=== PATIENT | female | born 1950 | race Caucasian/White ===

== ENCOUNTER 2022-03-20 07:47 | Emergency (ER) | payer MEDICARE ==
[2022-03-20 07:55] VITALS: RESP 18
[2022-03-20 08:50] LABS: Basophils # (A) 0.1 k/uL (0-0.2); Basophils % (A) 1 %; Eosinophils # (A) 0.2 k/uL (0-0.7); Eosinophils % (A) 3 %; HCT 47.2 % (34.0-46.0); HGB 15.6 gm/dL (11.4-16.0); Lymphocytes # (A) 1.6 k/uL (1.0-4.8); Lymphocytes % (A) 24 %; MCH 30.1 pg (25.0-35.0); MCV 91.1 fL (80.0-100.0); Mean Platelet Volume 9.8; Monocytes # (A) 0.3 k/uL (0-1.0); Monocytes % (A) 4 %; Neutrophils # (A) 4.4 k/uL (1.3-7.7); Neutrophils % (A) 66 %; Platelet Count 219 k/uL (150-450); RBC 5.18 m/uL (3.80-5.40); RDW 12.7 % (11.5-15.5); WBC 6.7 k/uL (3.8-10.6)
--- NOTE | 2022-03-20 08:54 | CT ---
EXAMINATION TYPE: CT brain wo con CT DLP: 1055.4 mGycm, Automated exposure control for dose reduction was used. DATE OF EXAM: 03/20/2022 8:24 AM COMPARISON: None CLINICAL INDICATION:Female, 71 years old with history of Neuro deficit, acute, stroke suspected, Rt e ye visual changes, [place] TECHNIQUE: Brain: Multiple axial CT images of the brain were obtained without IV contrast. FINDINGS: Brain: Extra-axial spaces: No abnormal extra-axial fluid collections. Ventricular system: Within normal limits Cerebral parenchyma: No acute intraparenchymal hemorrhage or mass effect. The sparrow-white junction is well differentiated. Cerebellum: Unremarkable. Mass effect: No evidence of midline shift. Intracranial vasculature: Atherosclerotic calcifications of the intracranial vessels. Soft tissues: Normal. Calvarium/osseous structures: No depressed skull fracture. Paranasal sinuses and mastoid air cells: Mild scattered paranasal sinus disease. Visualized orbits: Orbital contents are intact. IMPRESSION: No acute intracranial process.
--- NOTE | 2022-03-20 08:54 | XR ---
EXAMINATION TYPE: XR chest 2V DATE OF EXAM: 03/20/2022 8:24 AM COMPARISON: None TECHNIQUE: XR chest 2V Frontal and lateral views of the chest. CLINICAL INDICATION:Female, 71 years old with history of altered mental status; FINDINGS: Lungs/Pleura: There is no evidence of pleural effusion, focal consolidation, or pneumothorax. Pulmonary vascularity: Unremarkable. Heart/mediastinum: Cardiomediastinal silhouette is unremarkable. Musculoskeletal: No acute osseous pathology. IMPRESSION: No acute cardiopulmonary disease/process.
[2022-03-20 08:58] LABS: INR 0.9 (<1.2); Partial Thromboplastin Time 25.6 sec (22.0-30.0); Prothrombin Time 10.3 sec (9.0-12.0)
[2022-03-20] MEDS ORDERED: hydrALAZINE HCL 20 MG/ML 1 ML VIAL IVP STA ×2 (09:02→09:41)
--- NOTE | 2022-03-20 09:02 | ED ---
General Adult HPI - General Chief complaint: Neuro Symptoms/Deficit Stated complaint: R eye swelling Time Seen by Provider: 03/20/22 08:00 Source: patient, RN notes reviewed, old records reviewed Mode of arrival: ambulatory Limitations: no limitations - History of Present Illness Initial comments: This is a 71-year-old female presents emergency Department complaining that last night about 10:00 she noticed she was having some blurred vision out of her right eye and she also noticed that she was having some pain around the right eye. Patient does not describe this headache she states it was more of an eye pain. Patient states today there is very little discomfort of the eye but her vision remains blurred. Patient did not notice that her pupil was dilated. Patient states she's been told that she has had high blood pressure in the past but has not done anything about it. Patient denies any chest pain palpitations difficulty breathing shortness of breath. Patient denies any other areas of numbness or weakness. Patient denies any slurred speech. - Related Data Previous Rx's Medication Instructions Recorded atenoloL [Tenormin] 12.5 mg PO BID #30 each 03/20/22 Allergies Allergy/AdvReac Type Severity Reaction Status Date / Time No Known Allergies Allergy Verified 03/20/22 09:45 Review of Systems ROS Statement: Those systems with pertinent positive or pertinent negative responses have been documented in the HPI. ROS Other: All systems not noted in ROS Statement are negative. Past Medical History Past Medical History: Cancer Additional Past Medical History / Comment(s): basal cell removed. History of Any Multi-Drug Resistant Organisms: None Reported Past Surgical History: No Surgical Hx Reported Past Psychological History: No Psychological Hx Reported Smoking Status: Never smoker Past Alcohol Use History: Occasional Past Drug Use History: None Reported General Exam - General Exam Comments Initial Comments: GENERAL: Patient is well-developed and well-nourished. Patient is nontoxic and well- hydrated and is in mild distress. ENT: Neck is soft and supple. No significant lymphadenopathy is noted. Oropharynx is clear. Moist mucous membranes. Neck has full range of motion without quinn citing any pain. EYES: The sclera were anicteric and conjunctiva were pink and moist. Extraocular movements were intact. Right pupil is dilated and not reactive Eyelids were unremarkable. PULMONARY: Unlabored respirations. Good breath sounds bilaterally. No audible rales rhonchi or wheezing was noted. CARDIOVASCULAR: There is a regular rate and rhythm without any murmurs gallops or rubs. ABDOMEN: Soft and nontender with normal bowel sounds. SKIN: Skin is clear with no lesions or rashes and otherwise unremarkable. NEUROLOGIC: Patient is alert and oriented x3. Cranial nerves II through XII are grossly intact. Motor and sensory are also intact. Normal speech, volume and content. Symmetrical smile. MUSCULOSKELETAL: Normal extremities with adequate strength and full range of motion. LYMPHATICS: No significant lymphadenopathy is noted PSYCHIATRIC: Normal psychiatric evaluation. Limitations: no limitations Course Vital Signs 03/20/22 03/20/22 03/20/22 07:48 09:08 09:34 Temperature 97.5 F L Pulse Rate 84 80 80 Respiratory 18 18 18 Rate Blood Pressure 222/108 194/102 190/99 O2 Sat by Pulse 97 98 98 Oximetry 03/20/22 09:53 Temperature 98.9 F Pulse Rate Respiratory Rate Blood Pressure O2 Sat by Pulse Oximetry Medical Decision Making - Medical Decision Making EKG shows sinus rhythm with occasional PVCs at 70 bpm ME interval is 159 QRSs 84 QT interval 396 QTC is 4:30. Patient's EKG shows no ST segment elevation or depression. Computed tomography scan shows no acute abnormality. I spoke with Dr. Vidal and he was not on-call nose Dr. Rubio so the patient will need to be transferred. Patient did receive high blood pressure medication in the emergency department and some timolol and alphagan eyedrops per Dr. Vidal. Dr. Adam came and saw the patient and prescribed a few more drops for the eye and will see the patient at 820 tomorrow. Patient's eye pressure came down to 3 2 from 72. - Lab Data Result diagrams: 03/20/22 08:31 03/20/22 09:15 Lab Results 03/20/22 03/20/22 03/20/22 Range/Units 08:31 08:31 09:15 WBC 6.7 (3.8-10.6) k/uL RBC 5.18 (3.80-5.40) m/uL Hgb 15.6 (11.4-16.0) gm/dL Hct 47.2 H (34.0-46.0) % MCV 91.1 (80.0-100.0) fL MCH 30.1 (25.0-35.0) pg MCHC 33.0 (31.0-37.0) g/dL RDW 12.7 (11.5-15.5) % Plt Count 219 (150-450) k/uL MPV 9.8 Neutrophils % 66 % Lymphocytes % 24 % Monocytes % 4 % Eosinophils % 3 % Basophils % 1 % Neutrophils # 4.4 (1.3-7.7) k/uL Lymphocytes # 1.6 (1.0-4.8) k/uL Monocytes # 0.3 (0-1.0) k/uL Eosinophils # 0.2 (0-0.7) k/uL Basophils # 0.1 (0-0.2) k/uL PT 10.3 (9.0-12.0) sec INR 0.9 (<1.2) APTT 25.6 (22.0-30.0) sec Sodium 140 (137-145) mmol/L Potassium 3.8 (3.5-5.1) mmol/L Chloride 107 (98-107) mmol/L Carbon Dioxide 24 (22-30) mmol/L Anion Gap 9 mmol/L BUN 6 L (7-17) mg/dL Creatinine 0.62 (0.52-1.04) mg/dL Est GFR (CKD-EPI)AfAm >90 (>60 ml/min/1.73 sqM) Est GFR (CKD-EPI)NonAf 90 (>60 ml/min/1.73 sqM) Glucose 114 H (74-99) mg/dL Calcium 9.0 (8.4-10.2) mg/dL Total Bilirubin 0.7 (0.2-1.3) mg/dL AST 23 (14-36) U/L ALT 16 (4-34) U/L Alkaline Phosphatase 92 (38-126) U/L Troponin I (0.000-0.034) ng/mL Total Protein 7.2 (6.3-8.2) g/dL Albumin 4.2 (3.5-5.0) g/dL 03/20/22 Range/Units 09:15 WBC (3.8-10.6) k/uL RBC (3.80-5.40) m/uL Hgb (11.4-16.0) gm/dL Hct (34.0-46.0) % MCV (80.0-100.0) fL MCH (25.0-35.0) pg MCHC (31.0-37.0) g/dL RDW (11.5-15.5) % Plt Count (150-450) k/uL MPV Neutrophils % % Lymphocytes % % Monocytes % % Eosinophils % % Basophils % % Neutrophils # (1.3-7.7) k/uL Lymphocytes # (1.0-4.8) k/uL Monocytes # (0-1.0) k/uL Eosinophils # (0-0.7) k/uL Basophils # (0-0.2) k/uL PT (9.0-12.0) sec INR (<1.2) APTT (22.0-30.0) sec Sodium (137-145) mmol/L Potassium (3.5-5.1) mmol/L Chloride (98-107) mmol/L Carbon Dioxide (22-30) mmol/L Anion Gap mmol/L BUN (7-17) mg/dL Creatinine (0.52-1.04) mg/dL Est GFR (CKD-EPI)AfAm (>60 ml/min/1.73 sqM) Est GFR (CKD-EPI)NonAf (>60 ml/min/1.73 sqM) Glucose (74-99) mg/dL Calcium (8.4-10.2) mg/dL Total Bilirubin (0.2-1.3) mg/dL AST (14-36) U/L ALT (4-34) U/L Alkaline Phosphatase (38-126) U/L Troponin I <0.012 (0.000-0.034) ng/mL Total Protein (6.3-8.2) g/dL Albumin (3.5-5.0) g/dL Critical Care Time Critical Care Time: Yes Total Critical Care Time: 35 Disposition Clinical Impression: Acute angle-closure glaucoma, High blood pressure Disposition: HOME SELF-CARE Condition: Good Instructions (If sedation given, give patient instructions): Glaucoma (ED) Additional Instructions: Take [address] Adam has prescribed 30 and take them as prescribed Prescriptions: atenoloL [Tenormin] 12.5 mg PO BID #30 each Is patient prescribed a controlled substance at d/c from ED?: No Referrals: None,Stated [Primary Care Provider] - 1-2 days Time of Disposition: 12:18
[2022-03-20 09:44] LABS: ALT 16 U/L (4-34); AST 23 U/L (14-36); African American GFR (CKD) >90 (>60 ml/min/1.73 sqM); Albumin 4.2 g/dL (3.5-5.0); Alkaline Phosphatase 92 U/L (38-126); Anion Gap 9 mmol/L; Blood Urea Nitrogen 6 mg/dL (7-17); Carbon Dioxide 24 mmol/L (22-30); Chloride 107 mmol/L (98-107); Glucose 114 mg/dL (74-99); Non-African American GFR(CKD) 90 (>60 ml/min/1.73 sqM); Potassium 3.8 mmol/L (3.5-5.1); Sodium 140 mmol/L (137-145); Total Bilirubin 0.7 mg/dL (0.2-1.3); Total Protein 7.2 g/dL (6.3-8.2)
[2022-03-20] MEDS ORDERED: TIMOLOL 0.25% OPHTH DROPS 5 ML BTL RIGHT EYE STA (10:01)
[2022-03-20] MEDS ORDERED: BRIMONIDINE TARTRATE 0.2% DROPS 5 ML BTL RIGHT EYE STA (10:04)
[2022-03-20] MEDS ORDERED: DORZOLAMIDE HCL 2% DROPS 10 ML BTL RIGHT EYE SCH (11:30)
[2022-03-20 12:28] VITALS: TEMP 97.5
[2022-03-20 12:51] VITALS: BP 147/89; PULSE 82
[2022-03-20] MEDS ORDERED: LATANOPROST 0.005% OPHTH DROPS 2.5 ML BTL RIGHT EYE SCH (21:00)
== END 2022-03-20 12:43 | disposition home or self-care (01) ==
LOC: EC 07:47
DX: H40.211 Acute angle-closure glaucoma, right eye (principal); I10 Essential (primary) hypertension
CPT/HCPCS: 96374; 96376; 99284; 36415; 93005; 80053; 84484; 85025; 85610; 70450; 85730; 71046; J0360

== ENCOUNTER 2022-04-09 07:27 | Emergency (ER) | payer MEDICARE ==
[2022-04-09 07:33] VITALS: BP 207/98; PULSE 71; RESP 16; TEMP 97.8
[2022-04-09] MEDS ORDERED: atenoloL 25 MG TAB PO STA (07:37)
--- NOTE | 2022-04-09 07:46 | ED ---
General Adult HPI - General Chief complaint: Recheck/Abnormal Lab/Rx Stated complaint: med refill Time Seen by Provider: 04/09/22 07:32 Source: patient, RN notes reviewed Mode of arrival: ambulatory Limitations: no limitations - History of Present Illness Initial comments: 70-year-old female presents emergency Department with chief complaint of knee medication refill. Patient states she's recently diagnosed hypertension states that she needs her atenolol. She denies any current symptoms. Denies chest pain shortness breath or dizziness. 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 Patient offers no complaints. - Related Data Previous Rx's Medication Instructions Recorded atenoloL [Tenormin] 12.5 mg PO BID #30 each 03/20/22 atenoloL 12.5 mg PO BID #30 tablet 04/09/22 Allergies Allergy/AdvReac Type Severity Reaction Status Date / Time No Known Allergies Allergy Verified 04/09/22 07:33 Review of Systems ROS Statement: Those systems with pertinent positive or pertinent negative responses have been documented in the HPI. ROS Other: All systems not noted in ROS Statement are negative. Past Medical History Past Medical History: Cancer, Hypertension Additional Past Medical History / Comment(s): basal cell removed. History of Any Multi-Drug Resistant Organisms: None Reported Past Surgical History: No Surgical Hx Reported Past Psychological History: No Psychological Hx Reported Smoking Status: Former smoker Past Alcohol Use History: Occasional Past Drug Use History: None Reported General Exam Limitations: no limitations General appearance: alert, in no apparent distress Head exam: Present: atraumatic, normocephalic, normal inspection Neck exam: Present: normal inspection. Absent: tenderness, meningismus, lymphadenopathy Respiratory exam: Present: normal lung sounds bilaterally. Absent: respiratory distress, wheezes, rales, rhonchi, stridor Cardiovascular Exam: Present: regular rate, normal rhythm, normal heart sounds. Absent: systolic murmur, diastolic murmur, rubs, gallop, clicks GI/Abdominal exam: Present: soft, normal bowel sounds. Absent: distended, tenderness, guarding, rebound, rigid Course Vital Signs 04/09/22 07:30 Temperature 97.8 F Pulse Rate 71 Respiratory 16 Rate Blood Pressure 207/98 O2 Sat by Pulse 95 Oximetry Medical Decision Making - Medical Decision Making Patient is asymptomatic does have noted hypertension given atenolol currently, patient was given medication refill. Disposition Clinical Impression: Hypertension, Encounter for medication refill Disposition: HOME SELF-CARE Condition: Stable Instructions (If sedation given, give patient instructions): Hypertension (ED) Additional Instructions: Please return to the Emergency Department if symptoms worsen or any other concerns. Prescriptions: atenoloL 12.5 mg PO BID #30 tablet Is patient prescribed a controlled substance at d/c from ED?: No Referrals: None,Stated [Primary Care Provider] - 1-2 days Jose Garrido MD [STAFF PHYSICIAN] - 1-2 days Time of Disposition: 07:46
== END 2022-04-09 07:58 | disposition home or self-care (01) ==
LOC: EC 07:27
DX: I10 Essential (primary) hypertension (principal); Z76.0 Encounter for issue of repeat prescription; Z87.891 Personal history of nicotine dependence
CPT/HCPCS: 99281

== ENCOUNTER 2022-04-09 18:01 | Emergency (ER) | payer MEDICARE ==
[2022-04-09 18:25] VITALS: RESP 16; TEMP 97.9
[2022-04-09] MEDS ORDERED: TIMOLOL 0.5% OPHTH DROPS 5 ML BTL RIGHT EYE STA ×3 (19:10→21:01)
[2022-04-09] MEDS ORDERED: BRIMONIDINE TARTRATE 0.2% DROPS 5 ML BTL RIGHT EYE STA ×3 (19:11→20:59)
[2022-04-09] MEDS ORDERED: PILOCARPINE 2% OPHTH DROPS 15 ML BTL RIGHT EYE STA (19:12)
[2022-04-09] MEDS ORDERED: acetaZOLAMIDE 250 MG TAB PO STA ×3 (19:38→21:59)
[2022-04-09] MEDS ORDERED: cloNIDine HCL 0.1 MG TAB PO STA (19:46)
[2022-04-09] MEDS ORDERED: HYDROmorphone 1 MG/ML 1 ML SYRINGE IVP STA (20:38)
[2022-04-09] MEDS ORDERED: hydrALAZINE HCL 20 MG/ML 1 ML VIAL IVP STA (20:51)
[2022-04-09] MEDS ORDERED: ACETAMINOPHEN TAB 500 MG TAB PO STA (20:53)
[2022-04-09] MEDS ORDERED: acetaZOLAMIDE 250 MG TAB PO SCH (21:00)
--- NOTE | 2022-04-09 22:04 | ED ---
Eye Problem HPI - General Chief complaint: Eye Problems Stated complaint: eye swelling-revisit Time Seen by Provider: 04/09/22 18:54 Source: patient Mode of arrival: ambulatory Limitations: no limitations - History of Present Illness Initial comments: Patient is a 71-year-old female recently diagnosed with acute angle closure glaucoma and hypertension who presents to the emergency department with a chief complaint of redness of the right eye. Patient states her symptoms started early this afternoon at approximately 3 PM. Reports burning of the right eye with increased watery drainage. Reports blurry vision in the right eye. Denies flashing lights or halos. Denies pain, redness, or vision changes of the left eye. Denies fever, chills, headache, abdominal pain, nausea, and vomiting. Patient recently diagnosed with acute angle closure glaucoma on March 20, 2022. At this time patient's blood pressure was elevated. She states shortly after s he was diagnosed with hypertension and prescribed atenolol. Patient takes daily eyedrops as directed for her glaucoma. States she has been unable to refill her blood pressure medication the past 4 days. She was able to get it filled this morning and did take her morning dose. She does not check her blood pressure at home. Denies chest pain, shortness of breath, and other concerns. Follows with ophthomalogist Dr. Adam who she has an appointment with at 9:30 AM tomorrow. - Related Data Previous Rx's Medication Instructions Recorded atenoloL [Tenormin] 12.5 mg PO BID #30 each 03/20/22 atenoloL 12.5 mg PO BID #30 tablet 04/09/22 Allergies Allergy/AdvReac Type Severity Reaction Status Date / Time No Known Allergies Allergy Verified 04/09/22 18:25 Review of Systems ROS Statement: Those systems with pertinent positive or pertinent negative responses have been documented in the HPI. ROS Other: All systems not noted in ROS Statement are negative. Past Medical History Past Medical History: Cancer, Hypertension Additional Past Medical History / Comment(s): basal cell removed. History of Any Multi-Drug Resistant Organisms: None Reported Past Surgical History: No Surgical Hx Reported Past Psychological History: No Psychological Hx Reported Smoking Status: Former smoker Past Alcohol Use History: Occasional Past Drug Use History: None Reported General Exam Limitations: no limitations General appearance: alert, in no apparent distress Head exam: Present: atraumatic, normocephalic, normal inspection Eye exam: Present: EOMI, conjunctival injection (right eye), other. Absent: normal appearance, PERRL (left: PERRL right: dilated, not reactive ), scleral icterus, nystagmus, periorbital swelling, periorbital tenderness Pupils: Present: unequal Respiratory exam: Present: normal lung sounds bilaterally. Absent: respiratory distress, wheezes, rales, rhonchi, stridor Cardiovascular Exam: Present: regular rate, normal rhythm, normal heart sounds. Absent: systolic murmur, diastolic murmur, rubs, gallop, clicks Neurological exam: Present: alert, oriented X3, CN II-XII intact Psychiatric exam: Present: normal affect, normal mood Skin exam: Present: warm, dry, intact, normal color. Absent: rash Course Vital Signs 04/09/22 04/09/22 04/09/22 18:23 20:39 20:40 Temperature 97.9 F Pulse Rate 59 L Respiratory 16 Rate Blood Pressure 189/109 184/98 184/98 O2 Sat by Pulse 95 97 97 Oximetry 04/09/22 04/09/22 04/09/22 20:50 21:00 21:10 Temperature Pulse Rate 47 L 49 L 58 L Respiratory Rate Blood Pressure 184/92 184/92 164/86 O2 Sat by Pulse 97 97 96 Oximetry 04/09/22 04/09/22 04/09/22 21:20 21:30 21:40 Temperature Pulse Rate 64 60 58 L Respiratory Rate Blood Pressure 136/79 136/79 124/69 O2 Sat by Pulse 96 95 96 Oximetry 04/10/22 04/10/22 06:54 08:19 Temperature Pulse Rate 53 L 56 L Respiratory 16 16 Rate Blood Pressure 108/66 114/61 O2 Sat by Pulse 97 98 Oximetry Medical Decision Making - Medical Decision Making This is a 71-year-old female recently diagnosed with acute angle glaucoma and hypertension who presents to the emergency department for evaluation of right eye redness and pain. Thorough history and examination were performed. Patient is in no apparent distress. Blood pressure is 189/109. The right pupil is dilated and not reactive. There is conjunctival injection. Average IOP of the right eye is 69. Average IOP of the left eye is 7. Case discussed with Dr. Godinez. Patient given atenolol, pilocarpine, brimonidine, and acetazolamide. She received 3 doses of atenolol and brimonidine. Eye pressure came down to 23 from 69. Patient did experience headache shortly after eyedrops, likely due to pilocarpine. Blood pressure was treated in the emergency department which improved at 124/69. Dr. Godinez and I discussed case several times over the phone. He is comfortable sending patient home with acetazolamide given she has an appointment with Dr. Adam in the morning however I did not feel comfortable sending patient home due to increased blurriness of the right eye. Visual acuity was obtained of the bilateral eyes which was 20/40 however patient continuously reports blurry vision and does not have a ride home. Case discussed with Dr. Prabhakar who will watch patient closely until the morning when she can go to her appointment. Per Dr. Godinez patient will receive 500 mg of acetazolamide before bed tonight and 500 mg in the morning. These medications have been ordered and the nurse is aware. The head of the bed will remained raised throughout the night. is my attending. Disposition Clinical Impression: High blood pressure, Acute angle-closure glaucoma of right eye Disposition: HOME SELF-CARE Condition: Fair Instructions (If sedation given, give patient instructions): Glaucoma (ED) Additional Instructions: Follow up with Dr. Adam as scheduled this morning. Return to the emergency department if you experience new, concerning, or worsening symptoms.. Is patient prescribed a controlled substance at d/c from ED?: No Referrals: None,Stated [Primary Care Provider] - 1-2 days Time of Disposition: 22:04
[2022-04-09] MEDS ORDERED: IBUPROFEN 800 MG TAB PO STA (22:15)
[2022-04-10] MEDS ORDERED: acetaZOLAMIDE 250 MG TAB PO ONE (01:00)
[2022-04-10 08:21] VITALS: BP 114/61; PULSE 56
== END 2022-04-10 08:22 | disposition home or self-care (01) ==
LOC: EC 18:01
DX: H40.211 Acute angle-closure glaucoma, right eye (principal); I10 Essential (primary) hypertension; Z87.891 Personal history of nicotine dependence
CPT/HCPCS: 99283; 96374; J0360